=== PATIENT | female | born 1985 | race African-American/Black ===

== ENCOUNTER 2016-11-27 12:05 | Emergency (ER) | payer OTHER, MEDICAID ==
--- NOTE | 2016-11-27 12:10 | UCPHY ---
H & P Time Seen by Provider: 11/27/16 12:09 Patient Type: Established HPI/ROS: CHIEF COMPLAINT: Cough. HISTORY OF PRESENT ILLNESS: The patient is a 31-year-old female who presents with 1.5 weeks of cough. 7 days ago she was placed on Azithromycin, Tessalon Pearles, and Albuterol for these symptoms. Her symptoms have not improved at all since then. She denies fever, chest pain, vomiting, chills, or other complaints. She does fine however that she is coughing so much that her ribs are beginning to bother her though there is no focality to this per se. She did have bronchitis 3 years ago and reports this feels similar. She is not asthmatic and does not smoke. She has not heard an audible wheeze. There has been no known exposure or travel REVIEW OF SYSTEMS: Constitutional: No fever, no chills. ENT: No sore throat. Cardiovascular: No chest pain, no palpitations. Respiratory: As above. Gastrointestinal: No nausea vomiting or diarrhea. No abdominal pain. Neurological: No headache. Past Medical/Surgical History: Migraines, endometrial ablation. Social History: Nonsmoker. Smoking Status: Never smoked Physical Exam: General Appearance: Alert, no distress. Afebrile. Normal phonation. No respiratory distress. Eyes: Pupils equal and round no pallor or injection. No icterus ENT, Mouth: Mucous membranes moist. Pharynx not erythematous and without exudate. TM Clear. Neck: No adenopathy. Supple. No JVD. Trachea in midline. Respiratory: There are no retractions, lungs are clear to auscultation. Auscultated prior to the nebulizer Cardiovascular: Regular rate and rhythm. Skin: Warm and dry, no rashes. Musculoskeletal: No joint swelling. Psychiatric: normal affect Constitutional: Initial Vital Signs Temperature (C) 36.6 C 11/27/16 12:25 Heart Rate 90 11/27/16 12:25 Respiratory Rate 16 11/27/16 12:25 Blood Pressure 144/93 H 11/27/16 12:25 O2 Sat (%) 100 11/27/16 12:25 O2 Delivery Mode Room Air Allergies/Adverse Reactions: codeine [Codeine] Allergy (Intermediate, Verified 11/27/16 12:30) HIVES HEAD TO TOE hydrocodone bitartrate [From Vicodin] Adverse Reaction (Verified 11/27/16 12:30) PROFUSELY ILL Home Medications: Medication Instructions Recorded (None) 09/27/09 Amox Tr/Potassium Clavulanate 2 each PO BID #20 tab 11/27/16 [Augmentin 1000MG ER Tablet (*)] Benzonatate 200 mg PO TID PRN #28 capsule 11/27/16 Medical Decision Making - Diagnostics EKG Interpretation: Chest x-ray: Two-view chest. Interpreted by radiologist. Films reviewed by me. Negative chest x-ray. ED Course/Re-evaluation: Chest x-ray obtained. 3ml IH Albuterol administered for cough. Breath sounds remain the same before and after the breathing treatment however there is a cough persistent. Differential Diagnosis: Diagnostic considerations include but are not limited to: Pneumonia, tuberculosis, Bronchitis, Sinusitis Departure - Departure Disposition: Home, Routine, Self-Care Clinical Impression: Sinusitis Qualifiers: Sinusitis location: maxillary Chronicity: acute Recurrence: non-recurrent Qualifier Code: (J01.00) Acute maxillary sinusitis, unspecified Condition: Good Instructions: Sinusitis (ED) Additional Instructions: Continue the Proventil inhaler Amoxicillin for the sinus infection Benzonatate as per prescription or Delsym for the cough-4 tsp twice daily p.r.n. Referrals: LUIS BERTRAND [Primary Care Provider] - As per Instructions Prescriptions: Amox Tr/Potassium Clavulanate [Augmentin 1000MG ER Tablet (*)] 2 each PO BID # 20 tab Benzonatate 200 mg PO TID PRN #28 capsule PRN Reason: Cough, Moderate - PQRS PQRS Measurement: Not applicable Report Scribed for: Ghulam Howard Report Scribed by: Emmanuel Dexter Date of Report: 11/27/16 Time of Report: 12:32
[2016-11-27 12:30] VITALS: BP 144/93; PULSE 90; RESP 16; TEMP 97.9; O2SAT 100
[2016-11-27] MEDS ORDERED: IPRATROPIUM/ALBUTEROL 3 ML DEYVIAL ONE (12:33)
[2016-11-27] MEDS ORDERED: IPRATROPIUM/ALBUTEROL 3 ML DEYVIAL IH ONE (12:39)
--- NOTE | 2016-11-27 14:00 | DX ---
PA and Lateral Chest History: Cough. Comparison: 2 view chest April 26, 2014. Findings: There is mild peribronchial thickening without focal consolidation. There is no pneumothora x or pleural effusion. The heart and pulmonary vasculature are normal. The bones are normal. Impression: Mild peribronchial thickening suggesting airways disease/bronchitis.
== END 2016-11-27 13:23 | disposition home or self-care (01) ==
LOC: CED 12:05
DX: J01.00 Acute maxillary sinusitis, unspecified (principal)
CPT/HCPCS: 71020-PO; 99214-PO; G0463-PO

== ENCOUNTER 2017-12-13 08:23 | Emergency (ER) | payer OTHER, MEDICAID ==
[2017-12-13 08:38] VITALS: RESP 18; TEMP 98; O2SAT 97
[2017-12-13] MEDS ORDERED: MECLIZINE HCL 25 MG TAB PO ONE (09:01)
[2017-12-13 09:18] LABS: PLATELET COUNT 266 10^3/uL (150-400)
--- NOTE | 2017-12-13 09:45 | EDPHY ---
H & P Time Seen by Provider: 12/13/17 08:44 HPI/ROS: CHIEF COMPLAINT: Dizziness HISTORY OF PRESENT ILLNESS: Patient is a 32-year-old female with history migraine headaches who presents emergency department with acute onset of dizziness. Patient states that she woke early this morning from sleep with significant dizziness and diaphoresis. She states her symptoms are much worse when she moves her head. Her symptoms are particularly worse when she sits up. She feels the room is swaying side to side. Her symptoms improved at rest. She has had no tenderness or hearing loss. Mild nausea with no vomiting. She has had no focal weakness or numbness. No visual change. Patient denies headache at this time. No recent trauma or fall. The patient had a migraine headache on Tuesday but her symptoms resolved. REVIEW OF SYSTEMS: My complete review of systems is negative except as mentioned in the HPI. Past Medical/Surgical History: Includes migraine, endometriosis Past surgical history: Procedure for endometriosis Social history: The patient drinks alcohol occasionally Smoking Status: Never smoked Physical Exam: Vitals noted GENERAL: Well-appearing, in no acute distress, alert. HEENT: Eyes normal to inspection, normal pharynx, no signs of dehydration. No nystagmus NECK: No thyromegaly, no lymphadenopathy, supple. RESPIRATORY: Clear to auscultation bilaterally, no rales, rhonchi or wheezing. CVS: Regular rate and rhythm, no rubs, murmurs, or gallops. ABDOMEN: Soft, nontender, nondistended, no organomegaly. BACK: Normal to inspection, no CVA tenderness. SKIN: Normal color, no rash, warm, dry. No pallor. EXTREMITIES: No pedal edema, no calf tenderness, no Homans sign or cords, no joint swelling. NEURO/PSYCH: Higher functions: Alert and Oriented x3. Normal speech and cognition. Normal mood and affect. Cranial nerves: Normal as tested. Cerebellar: Normal as tested. Good finger to nose, good [id number], normal gait. Peripheral exam: Normal motor exam. Normal sensation. Normal reflexes. Constitutional: Initial Vital Signs Temperature (C) 36.6 C 12/13/17 08:35 Heart Rate 68 12/13/17 08:35 Respiratory Rate 18 12/13/17 08:35 Blood Pressure 150/104 H 12/13/17 08:35 O2 Sat (%) 97 12/13/17 08:35 O2 Delivery Mode Room Air Allergies/Adverse Reactions: codeine [Codeine] Allergy (Intermediate, Verified 11/27/16 12:30) HIVES HEAD TO TOE hydrocodone bitartrate [From Vicodin] Adverse Reaction (Verified 11/27/16 12:30) PROFUSELY ILL Home Medications: Medication Instructions Recorded Meclizine HCl [Meclizine HCl 25 mg 25 mg PO TID #11 tab 12/13/17 (RX,OTC)] Medical Decision Making - Diagnostics EKG Interpretation: EKG shows normal sinus rhythm, normal rate, normal axis, normal intervals. There are no ST or T-wave abnormalities. EKG is normal as interpreted by me. Imaging Results: Imaging Impressions Head CT 12/13/17 08:58 Impression: 1. Normal CT brain without contrast. 2. Consider MRI of the brain, if there is continued clinical concern. Findings and recommendations discussed with Emergency Department physician, Dr. Monique Wyman at 0959 hours on December 13, 2017. Final report concurs with initial preliminary interpretation. ED Course/Re-evaluation: In the emergency department I discussed possible etiologies with the patient. I answered all her questions. IV was placed. Laboratory studies, EKG and head CT were ordered. Patient given meclizine 25 mg orally. CBC chemistry are normal. is negative. Troponin is pending. Troponin negative Prior to CT imaging I rechecked the patient. She stated she was feeling better. On recheck the patient was able to go to the bathroom. She ambulated without difficulty. CT: Please refer the dictated report. No acute disease. 1045: The patient has no focal neurologic deficits. Her symptoms are improved. I discussed all results with the patient. I answered her questions. She is given warnings prior to leaving. She will follow up with primary care physician. Differential Diagnosis: My differential includes but is not limited to peripheral vertigo, central vertigo, CVA, dissection, aneurysm, migraine, dysrhythmia, anemia - Data Points Laboratory Results: Laboratory Results 12/13/17 09:15 12/13/17 09:15 12/13/17 12/13/17 12/13/17 09:15 09:15 09:15 WBC 7.77 10^3/uL 10^3/uL (3.80-9.50) RBC 4.91 10^6/uL 10^6/uL (4.18-5.33) Hgb 14.5 g/dL g/dL (12.6-16.3) Hct 42.9 % % (38.0-47.0) MCV 87.4 fL fL (81.5-99.8) MCH 29.5 pg pg (27.9-34.1) MCHC 33.8 g/dL g/dL (32.4-36.7) RDW 13.0 % % (11.5-15.2) Plt Count 266 10^3/uL 10^3/uL (150-400) MPV 9.7 fL fL (8.7-11.7) Neut % (Auto) 71.5 % % (39.3-74.2) Lymph % (Auto) 20.8 % % (15.0-45.0) Morrill % (Auto) 6.2 % % (4.5-13.0) Eos % (Auto) 0.6 % % (0.6-7.6) Baso % (Auto) 0.6 % % (0.3-1.7) Nucleat RBC Rel Count 0.0 % % (0.0-0.2) Absolute Neuts (auto) 5.55 10^3/uL 10^3/uL (1.70-6.50) Absolute Lymphs (auto) 1.62 10^3/uL 10^3/uL (1.00-3.00) Absolute Monos (auto) 0.48 10^3/uL 10^3/uL (0.30-0.80) Absolute Eos (auto) 0.05 10^3/uL 10^3/uL (0.03-0.40) Absolute Basos (auto) 0.05 10^3/uL 10^3/uL (0.02-0.10) Absolute Nucleated RBC 0.00 10^3/uL 10^3/uL (0-0.01) Immature Gran % 0.3 % % (0.0-1.1) Immature Gran # 0.02 10^3/uL 10^3/uL (0.00-0.10) Sodium 142 mEq/L mEq/L (135-145) Potassium 4.6 mEq/L mEq/L (3.5-5.2) Chloride 105 mEq/L mEq/L (97-110) Carbon Dioxide 23 mEq/l mEq/l (22-31) Anion Gap 14 mEq/L mEq/L (8-16) BUN 7 mg/dL mg/dL (7-23) Creatinine 0.9 mg/dL mg/dL (0.6-1.0) Estimated GFR > 60 Glucose 100 mg/dL mg/dL (70-100) Calcium 9.0 mg/dL mg/dL (8.5-10.4) Troponin I < 0.012 ng/mL ng/mL (0.000-0.034) Beta HCG, Qual NEGATIVE Medications Given: Discontinued Medications Meclizine HCl (Meclizine Hcl) 25 mg PO EDNOW ONE Stop: 12/13/17 09:02 Last Admin: 12/13/17 09:08 Dose: 25 mg Departure - Departure Disposition: Home, Routine, Self-Care Clinical Impression: Dizziness Condition: Good Instructions: Dizziness (ED) Additional Instructions: Return with increasing dizziness, headache, weakness, numbness or any other concerns. Referrals: Mitch Trujillo DO [Doctor of Osteopathy] - 5-7 days, call for appt. Prescriptions: Meclizine HCl [Meclizine HCl 25 mg (RX,OTC)] 25 mg PO TID #11 tab
--- NOTE | 2017-12-13 10:12 | CPEKG ---
Heart Rate: 51 RR Interval: 1176 P-R Interval: 144 QRSD Interval: 72 QT Interval: 412 QTC Interval: 380 P Pine: 36 QRS Pine: 20 T Wave Pine: 38 EKG Severity - NORMAL ECG - EKG Impression: SINUS RHYTHM Electronically Signed By: Monique Wyman 13-Dec-2017 14:48:54
[2017-12-13 11:17] VITALS: BP 122/62; PULSE 55
== END 2017-12-13 11:17 | disposition home or self-care (01) ==
LOC: CED 08:23
DX: R42 Dizziness and giddiness (principal)
CPT/HCPCS: 70450-PO; 80048-PO; 84484-PO; 84703-PO; 85025-PO